=== PATIENT | male | born 1955 | race Caucasian/White ===

== ENCOUNTER 2018-12-31 07:43 | Emergency (ER) | payer MEDICAID, OTHER ==
[2018-12-31 08:19] VITALS: BMI 31.5
[2018-12-31] MEDS ORDERED: Iohexol 240 (50 ml) PO ONE (08:33)
[2018-12-31] MEDS ORDERED: Sodium Chloride 0.9% 1,000 ML IV STA (08:33)
--- NOTE | 2018-12-31 08:36 | ED PDOC ---
HPI: Abdomen Time Seen by Provider: 12/31/18 07:46 Chief Complaint (Nursing): Abdominal Pain Chief Complaint (Provider): Abd pain History Per: Patient History/Exam Limitations: no limitations Onset/Duration Of Symptoms: Days (yesterday 4pm) Additional Complaint(s): Pt. with RLQ pain. No dysuria. No weakness, back pain, chest pain, dyspnea. No fever. No testicular pain. No new food or drinks. Past Medical History Reviewed: Nursing Documentation, Vital Signs Vital Signs: Last Vital Signs Temp 97.8 F 12/31/18 08:21 Pulse 76 12/31/18 08:21 Resp 18 12/31/18 08:21 BP Pulse Ox 95 12/31/18 08:21 - Medical History PMH: Gastritis, HTN - Family History Family History: States: Unknown Family Hx - Immunization History Hx Tetanus Toxoid Vaccination: No Hx Influenza Vaccination: No Hx Pneumococcal Vaccination: No - Home Medications Home Medications: Ambulatory Orders Medication Instructions Recorded Ranitidine Hydrochloride [Zantac 75 mg PO BID #10 tab 09/05/15 75] Ciprofloxacin HCl [Cipro] 500 mg PO BID #20 tablet 11/29/15 Metronidazole [Flagyl] 500 mg PO BID #20 tablet 11/29/15 Ciprofloxacin HCl [Cipro] 500 mg PO BID 7 Days tab 12/31/18 Ibuprofen [Motrin] 600 mg PO TID 7 Days tab 12/31/18 Metronidazole [Flagyl] 500 mg PO TID 7 Days tablet 12/31/18 - Allergies Allergies/Adverse Reactions: Allergies Allergy/AdvReac Type Severity Reaction Status Date / Time No Known Allergies Allergy Verified 11/29/15 08:08 Review of Systems ROS Statement: Except As Marked, All Systems Reviewed And Found Negative Gastrointestinal: Positive for: Abdominal Pain Physical Exam - Reviewed Nursing Documentation Reviewed: Yes Vital Signs Reviewed: Yes - Physical Exam Appears: Positive for: Non-toxic, No Acute Distress Head Exam: Positive for: ATRAUMATIC, NORMAL INSPECTION, NORMOCEPHALIC Skin: Positive for: Normal Color, Warm, DRY Eye Exam: Positive for: EOMI, Normal appearance, PERRL ENT: Positive for: Normal ENT Inspection Neck: Positive for: Normal, Painless ROM Cardiovascular/Chest: Positive for: Regular Rate, Rhythm Respiratory: Positive for: CNT, Normal Breath Sounds Gastrointestinal/Abdominal: Positive for: Soft, Tenderness (RLQ) Back: Positive for: Normal Inspection. Negative for: L CVA Tenderness, R CVA Tenderness Extremity: Positive for: Normal ROM. Negative for: Tenderness Neurological/Psych: Positive for: Awake, Alert, Normal Tone - Laboratory Results Result Diagrams: 12/31/18 08:30 12/31/18 08:30 Interpretation Of Abn Labs: no acute - ECG O2 Sat by Pulse Oximetry: 95 - CT Scan/US ct Other Rad Studies (CT/US): Read By Radiologist Other Rad Interpretation: diverticulitis with local reactive changes - Progress ED Course And Treament: 1332: Stable. AAOx3. Pain free. Tolerated PO. Will dc with antibiotics and pain meds. Disposition - Clinical Impression Clinical Impression: Diverticulitis - Patient ED Disposition Is Patient to be Admitted: Yes Counseled Patient/Family Regarding: Studies Performed, Diagnosis, Need For Followup, Rx Given - Disposition Referrals: [facility] [Outside] - 01/04/19 Jair Gilliland MD [Staff Provider] - 01/04/19 Disposition: Routine/Home Disposition Time: 13:33 Condition: STABLE Additional Instructions: Return if not better in 3 days. Prescriptions: Ciprofloxacin HCl [Cipro] 500 mg PO BID 7 Days tab Ibuprofen [Motrin] 600 mg PO TID 7 Days tab Metronidazole [Flagyl] 500 mg PO TID 7 Days tablet Instructions: Diverticulitis Forms: [employer] (Frisian) Print Language: AZERI
[2018-12-31 09:06] LABS: VENOUS BLOOD GAS PCO2 53 mmHg (40-60); VENOUS BLOOD GAS PO2 27 mm/Hg (30-55); VENOUS BLOOD PH 7.37 (7.32-7.43)
[2018-12-31] MEDS ORDERED: Iohexol 240 (50 ml) ONE (09:06)
[2018-12-31 09:08] LABS: BASO # 0.1 K/uL (0.0-0.2); BASO % 0.6 % (0.0-2.0); EOS # 0.1 K/uL (0.0-0.7); EOS % 0.8 % (0.0-4.0); HEMOGLOBIN 13.1 g/dL (12.0-18.0); LYMPH # 1.5 K/uL (1.0-4.3); LYMPH % 13.1 % (20.0-40.0); MEAN CELL VOLUME 90.4 fl (80.0-94.0); MEAN CORPUSCULAR HEMOGLOBIN 30.6 pg (27.0-31.0); MEAN CORPUSCULAR HGB CONC 33.8 g/dL (33.0-37.0); MEAN PLATELET VOLUME 9.3 fl (7.2-11.7); MONO # 0.9 K/uL (0.0-0.8); MONO % 8.1 % (0.0-10.0); NEUT # 8.8 K/uL (1.8-7.0); NEUT % 77.4 % (50.0-75.0); NRBC % 0.1 % (0.0-0.0); RBC 4.28 Mil/uL (4.40-5.90); WHITE BLOOD COUNT 11.3 K/uL (4.8-10.8)
[2018-12-31 09:20] LABS: ALB/GLOB RATIO 1.2 (1.0-2.1); ALBUMIN 4.5 g/dL (3.5-5.0); ALT/SGPT 38 U/L (21-72); AST/SGOT 28 U/L (17-59); BLOOD UREA NITROGEN 16 mg/dl (9-20); CALCIUM 8.8 mg/dL (8.4-10.2); GFR NON-AFRICAN AMERICAN > 60
[2018-12-31] MEDS ORDERED: Iohexol 300 100 ML IJ ONE (10:56)
[2018-12-31] MEDS ORDERED: Sodium Chloride 0.9% 50 ML IV ONE (10:57)
--- NOTE | 2018-12-31 12:41 | CT ---
Date of service: 12/31/2018 PROCEDURE: CT Abdomen and Pelvis with contrast HISTORY: abd pain COMPARISON: Abdomen pelvis CT with contrast 11/29/2015. TECHNIQUE: Following oral and intravenous contrast administration, a CT examination of the abdomen and pelvis was performed from the domes of the diaphragms to the symphysis pubis with reformatted datasets provided not only axial but also sagittal and coronal series. Contrast dose: Omnipaque 300, 95 cc Radiation dose: Total exam DLP = 785.89 mGy-cm. This CT exam was performed using one or more of the following dose reduction techniques: Automated exposure control, adjustment of the mA and/or kV according to patient size, and/or use of iterative reconstruction technique. FINDINGS: LOWER THORAX: Mild cardiomegaly reiterated. No pleural or pericardial effusion identified. LIVER: Diminished attenuation throughout the liver indicates hepatic steatosis. A moderate size cyst is seen at the caudate lobe with associated focal fatty sparing in the soft tissue extrinsic to it, measuring 4.3 x 3.5 cm compared to 3.7 x 2.8 cm. A remains low density at 6.5 Hounsfield units. A small lucency likely representing a CIS but under 1 cm size seen at the junction of the medial left and right lobes at the central liver once again. A 3rd lucency remains too small to characterize at the right lobe inferiorly. GALLBLADDER AND BILE DUCTS: Gallbladder is stable and unremarkable. PANCREAS: Unremarkable. No gross lesion or ductal dilatation. SPLEEN: Unremarkable. ADRENALS: Unremarkable. No mass. KIDNEYS AND URETERS: Unremarkable. No hydronephrosis. No solid mass. VASCULATURE: Unremarkable. No aortic aneurysm. No aortic atherosclerotic calcification or mural plaque present. Low-density nodular soft tissue is seen at the left para aortic/medial perirenal space once again with somewhat lobular peripheral margins with variable density from 10-25. This suggest complex cystic changes. Due to its irregular shape, is difficult to measure but measures approximately 3.0 x 6.5 by 6.6 cm compared to 3.3 x 5.6 x 7.3 cm previously (transverse by anteroposterior by superoinferior dimensions). This felt to reflect a benign process given its general stability over 3 years time frame. BOWEL: No bowel obstruction identified. Left colonic diverticulosis is appreciate without diverticulitis. However, there is mural thickening of the cecum and ascending colon which are also affected by diverticular changes with normal appearing appendix in a pattern suggestive of segmental colitis/diverticulitis. Clinically correlate further. The opacified small bowel is unremarkable grossly. APPENDIX: Normal appendix. PERITONEUM: Pericolic reaction surrounding ascending colon and cecum noted. No ascites or free air. No abscess. LYMPH NODES: Unremarkable. No enlarged lymph nodes. BLADDER: Urine bladder wall is thickened though largely collapsed. Cystitis not completely excluded. REPRODUCTIVE: Mild prostate gland enlargement. BONES: No acute fracture. OTHER FINDINGS: None. IMPRESSION: 1. Findings most compatible with diverticulitis affecting the cecum and ascending colon without definite abscess though local reactive changes are apparent. No free intrarenal gas or other sign of bowel perforation. 2. Hepatic steatosis and slightly enlarging caudate lobe simple cyst. Two additional hepatic lucencies are not significantly changed in the interval as discussed above, the smallest of which is too small to characterize at the right lobe inferiorly. 3. Nonspecific low-density lesion at the left para-aortic/perirenal space not significantly changed in size interval likely reflecting a benign process. 4. Potential cystitis. Clinically correlate further.
[2018-12-31 14:34] VITALS: BP 131/68; PULSE 77; RESP 18; TEMP 98; O2SAT 99
== END 2018-12-31 14:00 | disposition home or self-care (01) ==
LOC: H.ER 07:43
DX: K57.92 Diverticulitis of intestine, part unspecified, without perforation or abscess without bleeding (principal); R10.31 Right lower quadrant pain
CPT/HCPCS: 74177; 80053; 82803; 85025; 87040; 96374; 99283; J1885; J7030; Q9966; Q9967